=== PATIENT | male | born 1945 | race Caucasian/White ===

== ENCOUNTER 2023-03-23 12:10 | Outpatient (NON) | payer MEDICARE, SELFPAY | END 2023-03-23 12:11 | disposition home or self-care (01) | LOC: ANHLAB 12:10 | PROVIDERS: PCP Family Medicine Adolescent Medicine; Visit Provider Nurse Practitioner | DX: C44.212 Basal cell carcinoma of skin of right ear and external auricular canal (principal) | CPT/HCPCS: 88305; 88331 ==